=== PATIENT | male | born 1970 | race African-American/Black ===

== ENCOUNTER 2018-07-13 21:13 | Emergency (ER) | payer SELFPAY ==
[~2018-07-13 21:13] MED LIST: Iopamidol 370 76% 100 ML VIAL ONE
[2018-07-13 22:02] LABS: #Basophils 0.1 thou/uL (0.0-0.2); #Eosinphils 0.2 thou/uL (0.0-0.7); #Lymphocytes 1.6 thou/uL (1.20-3.40); #Monocytes 0.8 thou/uL (0.11-0.59); #Neutrophils 3.1 thou/uL (1.40-6.50); %Basophils 2.4 % (0.0-1.0); %Eosinophils 2.8 % (0.0-10.0); %Lymphocytes 28.1 % (21.0-51.0); %Neutrophils 53.7 % (42.0-75.0); Hemoglobin 12.3 g/dL (14.0-18.0); Mean Corpuscular HGB CONC 32.5 g/dL (32.0-36.0); Mean Corpuscular Hemoglobin 32.9 pg (27.0-31.0); Mean Platelet Volume 6.6 fL (7.4-10.4); Platelet Count 179 thou/uL (130-400); RBC Distribution Width 12.7 % (11.5-14.5); Red Blood Cell (RBC) Count 3.75 mill/uL (4.70-6.10); White Blood Cell (WBC) Count 5.8 thou/uL (4.8-10.8)
[2018-07-13 22:08] LABS: Bilirubin Negative (Negative); Blood, Urine Trace (Negative); Clarity Clear (Clear); Glucose, Urine (Dipstick) Negative (Negative); Leukocyte Negative (Negative); Nitrite Negative (Negative); Protein, Urine (Dipstick) Trace mg/dL (Neg-Trace); Specific Gravity, Urine 1.015 (1.005-1.030)
[2018-07-13 22:14] LABS: Bacteria/HPF None Seen HPF (None Seen); RBC/HPF 0-3 HPF (0-3); Squamous Epithelial 0-3 HPF (0-3); WBC/HPF None Seen HPF (0-3)
[2018-07-13 22:18] LABS: ALT (SGPT) 31 U/L (8-55); AST (SGOT) 55 U/L (5-34); Alkaline Phosphatase 85 U/L (40-150); Anion Gap 16 mmol/L (10-20); BUN (Urea Nitrogen) 11 mg/dL (8.9-20.6); Bilirubin, Total 0.7 mg/dL (0.2-1.2); Calc. Creatinine Clearance 0 mL/min (70-130); Calcium 9.1 mg/dL (7.8-10.44); Carbon Dioxide 26 mmol/L (22-29); Chloride 105 mmol/L (98-107); Estimated GFR-MDRD Greater than 90; Globulin 3.4 g/dL (2.4-3.5); Glucose 91 mg/dL (70-105); Lipase 150 U/L (8-78); Potassium 3.6 mmol/L (3.5-5.1); Protein, Total 7.4 g/dL (6.0-8.3); Sodium 143 mmol/L (136-145)
[2018-07-13] MEDS ORDERED: Ondansetron PF 4 MG/2 ML Vial ONE (23:26)
[2018-07-13] MEDS ORDERED: Morphine 4 MG/ML VIAL ONE (23:26)
--- NOTE | 2018-07-13 23:28 | CT ---
ABDOMEN AND PELVIS CT SCAN WITH IV CONTRAST: HISTORY: A 48-year-old male with a history of abdominal pain and cramping for three days. History of prior pa ncreatitis. FINDINGS: The lungs bases are clear. The visualized liver, gallbladder, spleen, and adrenal glands are unremar kable. There is a 2.7 x 4.3 cm in diameter, somewhat loculated, cystic mass involving the region of the head of the pancreas. This has increased in size from the prior 08/19/2012 study. The remainder of the pancreas appears unremarkable. No renal calculus or obstruction. Normal appearing append ix. No significant free intraperitoneal fluid. IMPRESSION: A 2.7 x 4.3 cm diameter, somewhat lobulated and at least partially septated cyst or cystic mass in th e region of the head of the pancreas. The amount of fluid associated with this has considerably incr eased when compared to 08/19/2012. The possibilities include that of a loculated pseudo cyst, a locu lated cystic mass, or possibly a choledochal cyst. No evidence for other significant acute process i n the abdomen or pelvis. POS: [facility]
== END 2018-07-14 00:20 | disposition home or self-care (01) ==
LOC: NAV ERS 21:13
DX: K86.2 Cyst of pancreas (principal); F17.210 Nicotine dependence, cigarettes, uncomplicated
CPT/HCPCS: 74177; 80053; 81003; 81015; 83690; 84484; 85025; 93005; 96374; 96375; J2270; J2405

== ENCOUNTER 2018-12-13 11:10 | Emergency (ER) | payer SELFPAY ==
[2018-12-13] MEDS ORDERED: Triple Antibiotic Oint 1 GM Packet ONE ×2 (11:33→11:34)
[2018-12-13] MEDS ORDERED: Acetaminophen 500 MG TAB ONE (11:51)
== END 2018-12-13 11:55 | disposition home or self-care (01) ==
LOC: NAV ERS 11:10
DX: T24.401A Corrosion of unspecified degree of unspecified site of right lower limb, except ankle and foot, initial encounter (principal); F17.210 Nicotine dependence, cigarettes, uncomplicated; I10 Essential (primary) hypertension; Z79.899 Other long term (current) drug therapy
CPT/HCPCS: 16000